=== PATIENT | male | born 1965 | race Two or more races ===

== ENCOUNTER 2019-01-20 20:50 | Emergency (ER) | payer MEDICAID ==
[~2019-01-20] VITALS: Ht 152.4 cm; Wt 81.6 kg
[~2019-01-20 20:50] MED LIST: IBUPROFEN600 MG PO; KEFLEX500 MG PO
[2019-01-20 21:00] VITALS: BP 148/84
--- NOTE | 2019-01-20 21:00 | NUR ---
ED Nurse Note: Pt walked in from home d/t left thumb laceration d/t work injury. Pt pain 10/17. Wound irrigated and cleansed, new gauze provided. Patient aao x 4 and ambulatory. No acute distress noted.
--- NOTE | 2019-01-20 21:11 | Emergency Room Report ---
History of Present Illness General Chief Complaint: Laceration Source: Patient Present Illness HPI Disclaimer: Please note that this report is being documented using [employer] technology. This can lead to erroneous entry secondary to incorrect interpretation by the dictating instrument. HPI: 53-year-old male presents for evaluation of a laceration to his left thumb. He was using a saw to cut a piece of wood at home. Excellently slipped and cut the dorsal aspect of his thumb. Able to flex and extend the digit. Denies loss of sensation or strength. Last tetanus was over 5 years ago. Bleeding was controlled at home with a pressure bandage. No other injury sustained. PMH: Reviewed PSH: Reviewed Allergies: None reported Social Hx: Denies alcohol or drug abuse. Allergies: Coded Allergies: No Known Allergies (Unverified , 07/22/11) Nursing Documentation-PM Past Medical History: No Stated History Hx Cardiac Problems: Yes Hx Hypertension: No Hx Pacemaker: No Hx Asthma: No Hx COPD: No Hx Diabetes: No Hx Cancer: No Hx Gastrointestinal Problems: No Hx Dialysis: No Hx Neurological Problems: No Hx Cerebrovascular Accident: No Hx Seizures: No Review of Systems All Other Systems: negative except mentioned in HPI Physical Exam Vital Signs Date Time Temp Pulse Resp B/P (MAP) Pulse Ox O2 Delivery O2 Flow Rate FiO2 01/20/19 20:56 97.9 67 16 148/84 (105) 96 Room Air General: Awake and alert, no acute distress HEENT: NC/AT. EOMI. Resp: Normal work of breathing Skin: 4 cm linear superficial laceration over the dorsal aspect of the left thumb between the MCPJ and the IPJ. MSK: Normal tone and bulk. Moving all extremities. No obvious deformity. Flex and extend all digits of the left hand. Sensation intact to light touch over the radial and ulnar aspects of all digits. Neuro: Awake and alert. Mentating appropriately Procedures Laceration/Wound Repair Laceration/Wound Repair : Consent: Verbal Wound Location: upper extremity Wound's Depth, Shape: superficial, linear Wound Explored: clean Anesthesia: 1% Lidocaine Volume Anesthetic (ccs): 10 Wound Debrided: None Wound Repaired With: sutures Suture Size/Type: 4:0, proline Number of Sutures: 6 Layer Closure?: No Sterile Dressing Applied?: Yes Patient Tolerated: Well Complications: None Medical Decision Making Diagnostic Impression: Primary Impression: Laceration ER Course 53-year-old male presents for evaluation of a laceration to the left thumb sustained in an accident while cutting somewhat at home. Tetanus is over 5 years old and will be updated today. Laceration was cleaned and irrigated continuously under water then closed with 6 simple interrupted 4-0 Prolene sutures. Bacitracin and sterile bandage applied. He will follow-up with his PMD in 7 to 10 days for suture removal return here if he cannot see a doctor otherwise. Discussed reasons to return to the emergency department patient and family. They understand and agree with this treatment plan. Last Vital Signs Date Time Temp Pulse Resp B/P (MAP) Pulse Ox O2 Delivery O2 Flow Rate FiO2 01/20/19 20:56 97.9 67 16 148/84 (105) 96 Room Air Disposition: HOME, SELF-CARE Condition: Stable Scripts Bacitracin (BACITRACIN*) 1 Each Packet 1 PACKET TOPIC TID, #30 PACKET 0 Refills Prov: Jairo Al MD 01/20/19 Jairo Al MD Jan 20, 2019 21:11
[2019-01-20] MEDS ORDERED: Lidocaine 1% 10mg/ml/Epi 0.005mg/ml 30ml vial INJ ONE (21:15)
[2019-01-20] MEDS ORDERED: Tetanus/Diptheria/Pertussis IM ONE (21:15)
--- NOTE | 2019-01-20 21:41 | NUR ---
ED Nurse Note: ERMD at bedside
[2019-01-20] MEDS ORDERED: BACITRACIN1 EACH TOPIC (21:56)
[2019-01-20] MEDS ORDERED: Bacitracin Oint UD TOPIC ONE (22:00)
[2019-01-20 22:16] VITALS: BP 135/85
--- NOTE | 2019-01-20 22:16 | NUR ---
ER DISCHARGE NOTE: Pt is cleared for DC per ER provider, pt discharge and aftercare instructions provided w/ prescriptions, pt verbalized understanding. pt advised to follow up with pcp or return to ED if change in condition, pt verbalized understanding. Vital signs stable, ambulatory w/ steady gait, left w/ all belongings. Wound cleaned and wrapped in dressing, pt tolerated well. Pt stable upon discharge.
== END 2019-01-20 22:16 | disposition home or self-care (01) ==
LOC: EMR 21:26
DX: S61.012A Laceration without foreign body of left thumb without damage to nail, initial encounter (principal); W26.9XXA Contact with unspecified sharp object(s), initial encounter; Y92.9 Unspecified place or not applicable; Z23 Encounter for immunization
CPT/HCPCS: 12002; 90471; 90715; Z7502; 99282

== ENCOUNTER 2019-01-28 13:15 | Emergency (ER) | payer MEDICAID ==
[~2019-01-28] VITALS: Ht 160 cm; Wt 81.6 kg
[~2019-01-28 13:15] MED LIST changes: +BACITRACIN1 EACH TOPIC
[2019-01-28 13:35] VITALS: BP 121/73
--- NOTE | 2019-01-28 13:35 | NUR ---
ED Nurse Note: Patient ambulated into ER for stitches removal in the left thumb that he received a week ago. Patient is aaox4, on room air with stable vital signs.
--- NOTE | 2019-01-28 13:57 | Emergency Room Report ---
History of Present Illness General Chief Complaint: Wound Recheck/Suture Removal Present Illness HPI 53-year-old male with no significant past medical history here requesting suture removal from his thumb. Sutures were placed in [facility] 8 days ago. Patient has full range of motion of his thumb. Denies numbness and tingling. No motor or sensory deficits noted. Denies any fever and chills distal. Has been applying mupirocin cream. Wound has healed and sutures to be removed today. Allergies: Coded Allergies: No Known Allergies (Unverified , 07/22/11) Patient History Past Medical History: see triage record Past Surgical History: unable to obtain Pertinent Family History: none Immunizations: UTD Reviewed Nursing Documentation: PMH: Agreed; PSxH: Agreed Nursing Documentation-PMH Hx Cardiac Problems: Yes Hx Hypertension: No Hx Pacemaker: No Hx Asthma: No Hx COPD: No Hx Diabetes: No Hx Cancer: No Hx Gastrointestinal Problems: No Hx Dialysis: No Hx Neurological Problems: No Hx Cerebrovascular Accident: No Hx Seizures: No Review of Systems All Other Systems: negative except mentioned in HPI Physical Exam Vital Signs Date Time Temp Pulse Resp B/P (MAP) Pulse Ox O2 Delivery O2 Flow Rate FiO2 01/28/19 13:30 98.4 52 18 121/73 (89) 97 Room Air Sp02 EP Interpretation: reviewed, normal General Appearance: well appearing, no apparent distress Head: normocephalic, atraumatic ENT: hearing grossly normal, normal voice Neck: full range of motion, supple Respiratory: lungs clear, no respiratory distress, no wheezing, speaking full sentences Cardiovascular #1: normal inspection, no murmur Gastrointestinal: soft Musculoskeletal: gait/station normal Neurologic: alert, oriented Psychiatric: normal inspection Skin: well hydrated, other - Repaired lac with sutures placed in Lymphatic: no adenopathy Medical Decision Making PA Attestation All my diagnosis and treatment plans were reviewed ad discussed with my supervising physician Dr. Dimas Diagnostic Impression: Primary Impression: Encounter for removal of sutures ER Course 53-year-old male with no significant past medical history here requesting suture removal from his thumb. Sutures were placed in [facility] 8 days ago. Patient has full range of motion of his thumb. Denies numbness and tingling. No motor or sensory deficits noted. Denies any fever and chills distal. Has been applying mupirocin cream. Wound has healed and sutures to be removed today. Ddx considered but are not limited to : Superficial laceration, deep laceration , tendon involvement with laceration, laceration with foreign body Vital signs: are WNL, pt. is afebrile H&PE are most consistent with: Suture removal ORDERS: None ED INTERVENTIONS: 5 sutures were removed DISCHARGE: At this time pt. is stable for d/c to home. Will provide printed patient care instructions, and any necessary prescriptions. Care plan and follow up instructions have been discussed with the patient prior to discharge. Last Vital Signs Date Time Temp Pulse Resp B/P (MAP) Pulse Ox O2 Delivery O2 Flow Rate FiO2 01/28/19 13:35 98.4 52 18 121/73 97 Room Air Disposition: HOME, SELF-CARE Condition: Stable Patient Instructions: Wound Check Thalia Ponce Jan 28, 2019 13:57
[2019-01-28 14:02] VITALS: BP 121/73
--- NOTE | 2019-01-28 14:02 | NUR ---
ER DISCHARGE NOTE: Patient is cleared to be discharged per HANK Vásquez, pt is aox4, on room air, with stable vital signs. pt was given dc instructions, pt was able to verbalize understanding, pt id band removed without complications. pt is able to ambulate with steady gait. pt took all belongings.
== END 2019-01-28 14:02 | disposition home or self-care (01) ==
LOC: EMR 13:57
DX: Z48.02 Encounter for removal of sutures (principal)
CPT/HCPCS: 99281